=== PATIENT | female | born 1960 | race Caucasian/White ===

== ENCOUNTER 2017-02-17 07:07 | Day surgery (SDC) | payer OTHER ==
[~2017-02-17] VITALS: Ht 152.4 cm; Wt 59.3 kg
[~2017-02-17 07:07] MED LIST: ACET-141 PO; APIX2.5T PO; FER325 PO; FLUT9.9S NASAL; IBUP-1542 PO; LORA10CA PO; METF500T4 PO; PHEN-537 PO; SIMV10TA PO; TRAM50TA2 PO
[2017-02-17] MEDS ORDERED: SERT50TA PO (07:56)
[2017-02-17] MEDS ORDERED: GABA300C16 PO (07:57)
[2017-02-17] MEDS ORDERED: BEN50 PO (07:57)
[2017-02-17] MEDS ORDERED: KENC1 TOP (07:58)
[2017-02-17 08:13] VITALS: Ht 152.4 cm; Wt 59.3 kg
[2017-02-17 08:35] VITALS: BP 131/69; PULSE 72; RESP 16
[2017-02-17 09:03] LABS: INR 1.18; PROTIME 15.1 Sec (12.2-14.2); PT RATIO 1.2
[2017-02-17 09:04] LABS: PARTIAL THROMBOPLASTIN TIME 32.6 Sec (25.0-35.0)
--- NOTE | 2017-02-17 09:19 | OPPN ---
Date/Time of Note Date/Time of Note DATE: 02/17/17 TIME: 09:15 Event Note Pt is 56 yo F with h/o HTN, DM, endometrial hyperplasia, anemia, severe cervical stenosis for hysteroscopy, D&C, polypectomy, also with significant PMH of DVT on Eliquis with inconsistent story of last dose of medication. 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 Given medication's half life , recommended to hold for 3 days. This is an elective procedure and with inconsistent story of time of last dose, increases risk of bleeding significantly. Discussed with patient and surgeon, combined decision with surgeon to cancel the case and reschedule with appropriate interruption of anticoagulation. RAMONA NAPIER MD Feb 17, 2017 09:19
--- NOTE | 2017-02-17 11:14 | PD.PPDC ---
ADULT SECONDARY EDUCATION INSTRUCTOR Discharge Instruction Condition Patient Condition: Good Diet Diet: Resume Regular Diet Activity/Restrictions Activity: Normal Activity May Shower Restrictions: No Exercising No Lifting No Driving No Sexual Activity Nothing in the Vagina No [facility] No Tampcassandra henley VERONICA MD Feb 17, 2017 11:14
--- NOTE | 2017-02-17 11:14 | PD.PPDC ---
INDEPENDENT AGENT MUSIC EDUCATION Discharge Instruction Condition Patient Condition: Good Diet Diet: Resume Regular Diet Activity/Restrictions Activity: Normal Activity May Shower Restrictions: No Exercising No Lifting No Driving No Sexual Activity Nothing in the Vagina No [place] No Tampcassandra henley VERONICA MD Feb 17, 2017 11:14
--- NOTE | 2017-02-17 11:26 | DS ---
Date/Time of Note Date/Time of Note DATE: 02/17/17 TIME: 11:23 Discharge Summary Admission/Discharge Info Admit Date/Time Discharge Date/Time 02/17/17 Final Diagnosis Patient was discharged home without surgical procedures done patient was on antiplatelets and forgot to DC the med before surgery Patient Condition: Good Hospital Course PATIENT WILL BE RESCHEDULED FOR THE SURGICAL PROCEDURE Home Meds Reported Medications Triamcinolone Acetonide* (Kenalog*) 0.1%-15GM Cr, 1 APPLIC TOP BID, #1 TUB 02/17/17 Gabapentin* (Gabapentin*) 300 Mg Capsule, 300 MG PO TID, #90 CAP 02/17/17 Diphenhydramine Hcl* (Benadryl*) 50 Mg Cap, 50 MG PO Q6 Y for ITCHING, CAP 02/17/17 Sertraline Hcl* (Zoloft*) 50 Mg Tablet, 50 MG PO DAILY, #30 TAB 02/17/17 Simvastatin* (Zocor*) 10 Mg Tablet, 10 MG PO QHS, #30 TAB 03/20/16 Tramadol HCl (Tramadol HCl) 50 Mg Tablet, 50 MG PO Q6H Y for PAIN, #120 TAB 03/20/16 Acetaminophen* (Acetaminophen*) 500 MG Extra Strength Tablet, 500 MG PO TID Y for PAIN AND OR ELEVATED TEMP, TAB 03/20/16 Metformin Hcl* (Metformin Hcl*) 500 Mg Tablet, 500 MG PO WITH BREAKFAST DINNE, # 30 TAB 03/20/16 Fluticasone Propionate (Flonase Allergy Relief) 9.9 Ml [place].susp, 2 SPRAY NASAL DAILY, #1 BOTTLE TO EACH NOSTRIL 03/20/16 Apixaban* (Eliquis*) 2.5 Mg Tablet, 2.5 MG PO BID, TAB 03/20/16 Loratadine* (Claritin*) 10 Mg Capsule, 10 MG PO DAILY, CAP 03/20/16 Discontinued Reported Medications Ferrous Sulfate* (Ferrous Sulfate*) 325 Mg Tabec, 325 MG PO DAILY, TAB 03/20/16 Discontinued Scripts Phenazopyridine Hcl* (Pyridium*) 100 Mg Tab, 100 MG PO TID for PAIN, #20 TAB Prov:CLAUDINE ORTIZ 03/20/16 Ibuprofen* (Motrin*) 600 Mg Tab, 600 MG PO Q6 for PAIN, #30 TAB Prov:ANGELCLAUDINE 03/20/16 Primary Care Provider Juan Miguel Wilson MD Pending Labs Laboratory Tests Test 02/17/17 08:05 02/17/17 08:25 Bedside Glucose 91mg/dL (70-220) Prothrombin Time 15.1Sec (12.2-14.2) Prothrombin Time Ratio 1.2 INR International Normalized Ratio 1.18 Activated Partial Thromboplast Time 32.6Sec (25.0-35.0) PORTIA CRUZ MD Feb 17, 2017 11:26
--- NOTE | 2017-02-17 16:00 | RADRPT ---
Vent Rate: 68 bpm RR Interval: 0 msec NM Interval: 134 msec QRS Duration: 82 msec QT Interval: 384 msec QTC Interval: 408 msec P-R-T [place]: 31 - 45 - 37 degrees Normal sinus rhythm Normal ECG Electronically Signed By: Matheus Randolph [id number]
== END 2017-02-17 10:20 | disposition home or self-care (01) ==
LOC: SDS 07:07
PROVIDERS: ATTEND Obstetrics & Gynecology
DX: N85.00 Endometrial hyperplasia, unspecified (principal); Z53.9 Procedure and treatment not carried out, unspecified reason; E11.9 Type 2 diabetes mellitus without complications; I10 Essential (primary) hypertension; Z86.718 Personal history of other venous thrombosis and embolism; Z79.02 Long term (current) use of antithrombotics/antiplatelets
CPT/HCPCS: 82962; 85610; 85730; 93005

== ENCOUNTER → 2017-03-17 | Day surgery (SDC) | payer OTHER ==
[2017-03-16 13:19] VITALS: BMI 25.8
[~2017-03-17] VITALS: Ht 154.9 cm; Wt 59.2 kg
[2017-03-17] VITALS (11 sets, daily range): BP systolic 98–120; BP diastolic 55–74; PULSE 76–98; RESP 16–18; Ht 154.9 cm; Wt 59.2 kg
[~2017-03-17] MED LIST changes: +BEN50 PO; +CLINDAMYCIN 600 MG/50 ML D5W IVPB IVPB ONE; +DEXTROSE 5%-LR 1,000 ML IV SCH; +DIPHENHYDRAMINE 50 MG INJ IV PRN; +FENTAnyl 50 MCG/ML VIAL IV PRN; -FER325 PO; +GABA300C16 PO; -IBUP-1542 PO; +LIDOCAINE 2% (SDV) 5 ML INJ ONE; +MEPERIDINE 100 MG INJ ONE; +MEPERIDINE 25 MG INJ IV PRN; +METOCLOPRAMIDE 10 MG INJ IV PRN; +METOCLOPRAMIDE 10 MG INJ ONE; +MIDAZOLAM 1 MG/ML 2 ML INJ IV PRN; +ONDANSETRON 4 MG INJ IV PRN; +ONDANSETRON 4 MG INJ ONE; +OXYCODONE/ACETAMINOPHEN (5/325) TAB PO PRN; -PHEN-537 PO; +PROPOFOL 20 ML ONE; +SERT50TA PO; +TRIA15CR55 TOP; +morphine (1 MG/ML) 10ML SYRINGE IV PRN
--- NOTE | 2017-03-17 09:58 | RADRPT ---
PROCEDURE: XR Chest. CLINICAL INDICATION: Preoperative for hysteroscopy. TECHNIQUE: Single frontal view. COMPARISON: None. FINDINGS: The lungs are clear. The heart size is normal. There is no pleural effusion. There is no pneumothorax. IMPRESSION: 1. Normal chest radiograph. RPTAT: QQ .Flako Mcdonough MD, MD Date Time Electronically viewed and signed by .Flako Mcdonough MD, on 03/17/2017 09:57 .R/
[2017-03-17 10:07] LABS: ADD UMIC NO; UR ASCORBIC ACID NEGATIVE (NEGATIVE); UR BILIRUBIN (Dip) NEGATIVE (NEGATIVE); UR BLOOD (Dip) NEGATIVE (NEGATIVE); UR CLARITY CLEAR (CLEAR); UR COLOR YELLOW (YELLOW); UR GLUCOSE (Dip) NEGATIVE (NEGATIVE); UR KETONES (Dip) NEGATIVE (NEGATIVE); UR LEUKOCYTE ESTERASE (Dip) NEGATIVE Leu/ul (NEGATIVE); UR NITRITE (Dip) NEGATIVE (NEGATIVE); UR SPECIFIC GRAVITY (Dip) 1.021 (1.003-1.030); UR TOTAL PROTEIN (Dip) NEGATIVE (NEGATIVE); UR UROBILINOGEN (Dip) NEGATIVE (NEGATIVE)
[2017-03-17 10:19] LABS: INR 0.97; PROTIME 12.9 Sec (12.2-14.2)
[2017-03-17 10:20] LABS: PARTIAL THROMBOPLASTIN TIME 29.1 Sec (25.0-35.0)
--- NOTE | 2017-03-17 11:32 | PD.PPDC ---
SR. DIRECTOR Discharge Instruction Condition Patient Condition: Good Diet Diet: Resume Regular Diet Activity/Restrictions Activity: Normal Activity May Shower Restrictions: No Exercising No Lifting No Driving No Sexual Activity Nothing in the Vagina No [place] No Tampons, douche Follow-up Follow-up with Physician: 2, Week/Weeks Return to clinic for MUSIC MINISTER Instructions: Fever greater than 101 Chills Worsening abdominal pain Excessive Vaginal Bleeding More than 2 pads per hour Unable to tolerate diet PORTIA CRUZ MD Mar 17, 2017 11:31
--- NOTE | 2017-03-17 11:36 | OPR ---
Date/Time of Note Date/Time of Note DATE: 03/17/17 TIME: 11:33 Operative Report Procedure Date: Mar 17, 2017 Preoperative Diagnosis FIBROID UTERUS CERVICAL STENOSIS ENDOMETRIAL POLYPS HYPERTENSION DIABETES PREVIOUS DVT Postoperative Diagnosis SAME Operation Performed HYSTEROSCOPY D&C Surgeon: PORTIA CRUZ MD Anesthesia: general Anesthesiologist: ED ROTHMAN MD Estimated Blood Loss: minimal Complications: None Pt Condition Post Procedure: stable Disposition: PACU PORTIA CRUZ MD Mar 17, 2017 11:36
--- NOTE | 2017-03-19 13:06 | PREOPHP ---
DATE OF ADMISSION: 03/17/2017 HISTORY OF PRESENT ILLNESS: This is a 56-year-old female 3, para 3. This patient has been sent to me for endometrial hyperplasia found by ultrasound. The possibility of a polyp was raised by the ultrasound. She has been using Premarin cream. She was referred to me due to hypertension, diabetes, anemia, cervical stenosis. She is on Eliquis which was inconsistent history, for which she was canceled before and she has been electively stopped on this medication for the last 3 days to be able to perform her D and C, hysteroscopy. She had a history of having a hernia repair in 1999 and her last ultrasound September 2016 showed the uterus to be 10 cm with a fibroid that was 3.7 x 1.6 cm with an endometrial lining of 9 mm which is thick for this age. The patient was advised for endometrial biopsy which was not able to be done due to cervical stenosis and she is being admitted for a fractional D and C and hysteroscopy, possible polypectomy. ALLERGIES: PENICILLIN. PAST MEDICAL HISTORY: She has no other pertinent history. She had a history of DVT for which she was placed on Eliquis and she has been controlled on her blood pressure and diabetes. She had 2 previous sections and one spontaneous delivery. FAMILY HISTORY: Noncontributory. PHYSICAL EXAMINATION: GENERAL: Good. VITAL SIGNS: Blood pressure of 108/70, pulse is 80s, respirations 16. She weighs 134, she is 5 feet. HEENT: The head and neck is normal. BREASTS: Nontender. No masses. LUNGS: Chest clear. CARDIAC: Heart normal sinus rhythm. BACK: Normal. ABDOMEN: Soft, nontender, no masses. GENITOURINARY: Genitalia with atrophy. Cervix very atrophic. Uterus is retroverted with an fibroid and adnexa are negative. IMPRESSION: 1. Severe vaginal atrophy. 2. Cervical stenosis. 3. Endometrial hyperplasia. 4. fibroid uterus. 5. History of deep vein thrombosis. 6. Hypertension 7. Diabetes. PLAN: She has been advised of the possible risk and possible complication of the procedure with her alternative and options. Written information was provided. She had no more questions and agreed to go ahead with the procedure with full understanding and no more questions. Dictated By: Esmer Rivas MD /luna/viktoriya /Document#: [id number]
--- NOTE | 2017-03-25 10:08 | OPR ---
DATE OF OPERATION: 03/17/2017 PREOPERATIVE DIAGNOSES: 1. Fibroid uterus. 2. Cervical stenosis. 3. Endometrial polyps. 4. Hypertension. 5. Diabetes. 6. Previous deep venous thrombosis. POSTOPERATIVE DIAGNOSES: 1. Fibroid uterus. 2. Cervical stenosis. 3. Endometrial polyps. 4. Hypertension. 5. Diabetes. 6. Previous deep venous thrombosis. OPERATION PERFORMED: 1. Dilatation and curettage. 2. Hysteroscopy. 3. Excision of polyps. SURGEON: Esmer Rivas MD ANESTHESIOLOGIST: Dr. Linder ANESTHESIA: General. DESCRIPTION OF PROCEDURE: The patient was given general anesthesia, placed in lithotomy position. The perineal/vaginal area was prepped and draped. Examination under anesthesia revealed the uterus had multiple fibroid appearance. The fiber was anteverted and there was bulging and bulkiness on the left adnexa which I could not determine if it was the ovary or a fibroid. There was marked cervical stenosis. The vaginal speculum was applied. The cervical stenosis was broken with gel and dilators, and the ECC was done and the cavity was probed to cavity number 8 cm. Dilatation was done and the hysteroscope was applied. Visualization of the cavity revealed that there were endometrial polyps. The polyp forceps was used and we removed one. There was another one that was very stubborn to be removed. We scraped the area several times and there was no availability for the cytoscope for which we just scraped and biopsied the one polyp that stayed. The procedure was finished by scraping the espinoza of the uterus anteriorly and posteriorly, laterally and on the fundus. The patient tolerated the procedure well and left the OR awake and stable. Sponge count and instrument counts were correct. Intravenous antibiotics were given for prophylaxis. Dictated By: Esmer Rivas MD /luna/rosenda /Document#: [id number]
== END | disposition home or self-care (01) ==
LOC: MERGE 02-17 09:00 → SDS 07:33
PROVIDERS: ATTEND Obstetrics & Gynecology
DX: D25.9 Leiomyoma of uterus, unspecified (principal); I10 Essential (primary) hypertension; E11.9 Type 2 diabetes mellitus without complications; N88.2 Stricture and stenosis of cervix uteri; N84.0 Polyp of corpus uteri
CPT/HCPCS: 58558; 71010; 81003; 82962; 84703; 85610; 85730; 88305; J2175; J2405; J2765; J7121; Z7512; Z7610